=== PATIENT | female | born 1965 | race Caucasian/White ===

== ENCOUNTER → 2018-08-08 15:25 | Outpatient (CLI) | payer OTHER, SELFPAY ==
--- NOTE | 2018-08-08 | DI.RAD.S_ITS ---
PROCEDURE: XR THORACIC SPINE 2V INDICATIONS: CHRONIC UPPER BACK PAIN TECHNIQUE: 4 views of the thoracic spine were acquired. COMPARISON: None. FINDINGS: Bones: Mild kyphosis centered at T7-8 level is seen. Mild degenerative disc disease throughout mid to lower thoracic spine is seen. No fractures or dislocations. No suspicious bony lesions. 12 pairs of ribs are noted, and appear intact where visualized. Soft tissues: No paravertebral stripe thickening. 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 Mild kyphosis centered at T7-8 level. No acute compression fracture or spondylolisthesis. Dictated by: Remington Montalvo M.D. on 08/08/2018 at 16:32 Approved by: Remington Montalvo M.D. on 08/08/2018 at 16:38
== END ==
PROVIDERS: PCP Family Medicine; Visit Provider Family Medicine
DX: M54.9 Dorsalgia, unspecified (principal); G89.29 Other chronic pain; M51.34 Other intervertebral disc degeneration, thoracic region; M40.204 Unspecified kyphosis, thoracic region
CPT/HCPCS: 72070

== ENCOUNTER 2018-11-01 08:57 | Day surgery (SDC) | payer OTHER, SELFPAY ==
[2018-11-01 09:48] VITALS: BP 116/80; PULSE 68; RESP 16; TEMP 36.4; O2SAT 97; BMI 26.0
--- NOTE | 2018-11-01 10:33 | PM.HP.1 ---
History of Present Illness Date Patient Seen: 11/01/18 Time Patient Seen: 10:33 Chief complaint: [id number] SCREENING COLONOSCOPY Narrative: Pleasant 53-year-old lady here for her 1st screening colonoscopy. She denies any problems or symptoms related to the function of her GI tract. She reports she needs colonoscopy as part of a health maintenance program. She denies any personal or family history of cancer or inflammatory bowel disease of any kind Patient History Family History Father Age: 82 Prostate cancer Heart disease Knee joint replacement status Grandmother Heavy smoker Sister Age: 57 MS (multiple sclerosis) Social History household members: none Family & Social History Family History Father Age: 82 Prostate cancer Heart disease Knee joint replacement status Grandmother Heavy smoker Sister Age: 57 MS (multiple sclerosis) Social History: household members none Meds Home Medications Medication Instructions Recorded Confirmed Type No Known Home Medications 11/01/18 11/01/18 History Allergies Allergy/AdvReac Type Severity Reaction Status Date / Time No Known Allergies Allergy Uncoded 11/01/18 09:47 Review of Systems Review of Systems All systems reviewed & are unremarkable except as noted in HPI and below Exam Vital Signs (past 8 hours): - 11/01/18 09:48 Temperature 97.6 F Pulse Rate 68 Respiratory Rate 16 Blood Pressure 116/80 Pulse Oximetry 97 Oxygen Delivery Method Room Air Narrative Exam Narrative: Pleasant and healthy-appearing 53-year-old lady in no distress HEENT: Normocephalic and atraumatic, pupils equal round reactive to light accommodation with anicteric sclera Lungs: Clear to auscultation bilaterally Heart: Regular rate and rhythm without murmur rub or gallop Abdomen: Soft, active bowel sounds Extremities: Warm and well perfused and without edema. Assessment & Plan Assessment & Plan narrative: Very pleasant 53-year-old lady here for her 1st colonoscopy. We discussed the risks and benefits of procedure the patient expressed a desire to complete it today
[2018-11-01] MEDS: MIDAZOLAM 5 MG/5 ML VIAL IV (10:47)
[2018-11-01] MEDS: fentaNYL 250 MCG/5 ML INJ IV (10:48)
--- NOTE | 2018-11-01 10:57 | PM.OP.1 ---
Operative Date/Time/Diagnoses Date of procedure: 11/01/18 Time of procedure: 10:57 Pre-op diagnosis: Screening Post-op diagnosis: same Procedure & Clinicians Procedure: Colonoscopy to the cecum Same procedure as scheduled: Yes Indications: No prior colonoscopy Surgeon: Marylu Gannon Click Yes if Unassisted: Yes Anesthesia Type: Sedation (Versed 8 mg; fentanyl 250 mcg) Operative Notes Findings: 1. Excellent prep 2. No polyps or mass lesions 3. No AV malformations 4. Very mildly tortuous sigmoid region with a few scattered diverticula 5. Grade 1-2 internal hemorrhoids without evidence of hemorrhage 6. Essentially normal colonoscopy for age Closure Type: not applicable Specimen(s): none sent Procedure in detail: After obtaining informed consent, the patient was brought to the GI suite and placed in the left lateral decubitus position on the examination table. After placement of appropriate monitors, the patient was given incremental doses of Versed and Fentanyl until an appropriate level of sedation was achieved. A time out was held per SCOAP protocol. A digital rectal examination was performed and did not reveal any masses or obstructing lesions. The colonoscope was gently passed into the patient's anus and the entire colon navigated to the level of the cecum with minimal difficulty. Once in the cecum, the scope was withdrawn being sure to go before and beyond all mucosal folds and prominences and get an excellent examination. The findings are noted above. At the level of the rectal vault, the scope was retroflexed and the internal anal canal was examined. The scope was straightened and air aspirated from the colon. The instrument was removed from the patient's body and the procedure was concluded. The patient was allowed to awaken from sedation without difficulty and taken to the post-anesthesia care unit in good condition. Total sedation time was 19 min Total withdrawal time 8 min Complications: none Condition: stable Disposition: PACU Plan for aftercare: 1. Discharge to home 2. Plan for next colonoscopy in 10 years or as clinically indicated
[2018-11-01 11:01] VITALS: BP 92/57; PULSE 62; RESP 16; TEMP 36.8; O2SAT 100
[2018-11-01 11:06] VITALS: BP 90/52; PULSE 60; RESP 11; O2SAT 99
[2018-11-01 11:11] VITALS: BP 91/53; PULSE 59; RESP 15; O2SAT 100
[2018-11-01 11:16] VITALS: BP 103/52; PULSE 69; RESP 13; TEMP 36.4; O2SAT 94
[2018-11-01 11:21] VITALS: BP 101/69; PULSE 67; RESP 15; TEMP 37.1; O2SAT 97
== END 2018-11-01 11:42 | disposition home or self-care (01) ==
PROVIDERS: PCP Family Medicine; Visit Provider Surgery
PROC: 0DJD8ZZ Inspection of Lower Intestinal Tract, Via Natural or Artificial Opening Endoscopic (ICD-10-PCS; CPT 45378; principal; 2018-11-01 09:45)
DX: Z12.11 Encounter for screening for malignant neoplasm of colon (principal); K57.30 Diverticulosis of large intestine without perforation or abscess without bleeding; K64.1 Second degree hemorrhoids
CPT/HCPCS: 45378; 99152; J2250; J3010

== ENCOUNTER → 2023-01-17 15:54 | Outpatient (CLI) | payer OTHER, SELFPAY | PROVIDERS: PCP Physician Assistant; Visit Provider Physician Assistant | DX: N76.0 Acute vaginitis (principal) | CPT/HCPCS: 87798 ==

== ENCOUNTER → 2023-12-28 13:08 | Outpatient (CLI) | payer OTHER, SELFPAY ==
--- NOTE | 2023-12-28 13:09 | DI.MG.S_ITS ---
BILATERAL DIGITAL SCREENING MAMMOGRAM 3D/2D WITH CAD: 12/28/2023 CLINICAL: Routine screening. Family history of breast cancer. Comparison is made to exams dated: 12/22/2022 mammogram, 11/25/2021 mammogram, 10/16/2020 mammogram, and 08/08/2018 mammogram - Outside facility. There are scattered areas of fibroglandular density in both breasts (category b / 25%-50% glandular tissue). Current study was also evaluated with a Computer Aided Detection (CAD) system. There are benign post operative findings in both breasts from prior reduction mammoplasty. No significant masses, calcifications, or other findings are seen in either breast. There has been no significant interval change. IMPRESSION: BENIGN There is no mammographic evidence of malignancy. A 1 year screening mammogram is recommended. Based on the Tyrer Cuzick model (a risk assessment model) the patient's lifetime risk is 16.6% and her 10 year risk is 5.5%. According to the ACR, ACS, and NCCN guidelines, an annual breast MRI exam along with mammogram is recommended if the patient's lifetime risk is 20% or greater. This exam was interpreted at Station ID: [id number]. NOTE: For mammograms, a report in lay terms will be sent to the patient. Approximately 15% of breast malignancies will not be visualized mammographically. In the management of a palpable breast mass, a negative mammogram must not discourage biopsy of a clinically suspicious lesion. Electronically Signed By: Cassandra Ramos M.D., Ph.D. eb/:01/03/2024 08:37:07 letter sent: Normal Exam ACR BI-RADS Category 2: Benign Finding(s) 3342F
== END ==
PROVIDERS: PCP Physician Assistant; Referring Provider Physician Assistant; Visit Provider Physician Assistant
DX: Z12.31 Encounter for screening mammogram for malignant neoplasm of breast (principal); Z80.3 Family history of malignant neoplasm of breast; R92.323 Mammographic fibroglandular density, bilateral breasts
CPT/HCPCS: 77063; 77067

== ENCOUNTER → 2025-01-09 11:05 | Outpatient (CLI) | payer BC, SELFPAY ==
[2025-01-09 19:26] LABS: Cholesterol 279 mg/dL (140-199); HDL Cholesterol 100 mg/dL (40-60); LDL Cholesterol Calculated 167 mg/dL (<100); Triglycerides 61 mg/dL (35-150)
== END ==
PROVIDERS: PCP Physician Assistant; Visit Provider Physician Assistant
DX: Z13.6 Encounter for screening for cardiovascular disorders (principal)
CPT/HCPCS: 80061

== ENCOUNTER → 2025-01-27 12:33 | Outpatient (CLI) | payer BC, SELFPAY ==
--- NOTE | 2025-01-27 12:35 | DI.MG.S_ITS ---
MM screening mammo BI: 01/27/2025. BI-RADS: 2 CLINICAL: 59-year old female for bilateral screening mammogram. Tyrer-Cuzick lifetime risk of 12.4%. Current reported family history of breast cancer: mother. The patient is status-post reduction mammoplasty. PRIOR EXAMS 12/28/2023, 12/22/2022, 11/25/2021. MAMMOGRAPHY TECHNIQUE: 2D and 3D (tomosynthesis) digital mammographic views obtained, with additional images as needed for full coverage. Current study was also evaluated with a Computer Aided Detection (CAD) system. DENSITY B. There are scattered areas of fibroglandular density. MAMMOGRAPHY FINDINGS Bilateral: Benign-appearing post-surgical changes noted. There are no suspicious masses, calcifications, or other findings in the breast. No significant change from comparison. IMPRESSION: * No evidence of malignancy with benign findings. RECOMMENDATIONS Bilateral * Annual screening mammography. OVERALL ASSESSMENT CATEGORY BI-RADS-2: Benign. The [employer] recommends annual screening mammography beginning at age 40 for women with average risk of breast cancer. ELECTRONICALLY SIGNED: Fritz Abraham M.D. on 01/27/2025 at 03:49:21 PM PT Interpreting Station ID: [id number]
== END ==
PROVIDERS: PCP Physician Assistant; Referring Provider Physician Assistant; Visit Provider Physician Assistant
DX: Z12.31 Encounter for screening mammogram for malignant neoplasm of breast (principal); Z80.3 Family history of malignant neoplasm of breast
CPT/HCPCS: 77063; 77067

== ENCOUNTER → 2025-02-13 13:54 | Outpatient (CLI) | payer BC, SELFPAY ==
[2025-02-13 20:16] LABS: Thyroid Stimulating Hormone 2.63 uIU/mL (0.47-4.68)
[2025-02-13 20:23] LABS: Hemoglobin A1C% w Est Avg Glu 5.1 % (4.0-6.0)
[2025-02-13 20:35] LABS: Vitamin B12 379 pg/mL (239-931)
== END ==
PROVIDERS: PCP Physician Assistant
DX: R20.0 Anesthesia of skin (principal); M54.50 Low back pain, unspecified
CPT/HCPCS: 82607; 83036; 83921; 84425; 84443; 86140

== ENCOUNTER → 2025-03-12 14:21 | Outpatient (CLI) | payer BC, SELFPAY ==
[2025-03-12 19:49] LABS: Alanine Aminotransferase 29 IU/L (<35); Albumin 4.4 g/dL (3.5-5.0); Albumin Globulin Ratio 1.9 (1.0-2.8); Alkaline Phosphatase 59 U/L (38-126); Blood Urea Nitrogen 12 mg/dL (7-17); Calcium 9.5 mg/dL (8.4-10.2); Carbon Dioxide 27 mmol/L (22-32); Chloride 103 mmol/L (98-107); Estimated Glomerular Filt Rate > 60 mL/min (>60); Gamma Glutamyl Transpeptidase 14 U/L (12-43); Globulin 2.3 g/dL (1.7-4.1); Glucose 83 mg/dL (70-99); HEMOLYSIS 16 (0-50); Potassium 4.1 mmol/L (3.4-5.1); Sodium 137 mmol/L (137-145); Total Protein 6.7 g/dL (6.3-8.2)
== END ==
PROVIDERS: PCP Physician Assistant
DX: R20.2 Paresthesia of skin (principal); M54.50 Low back pain, unspecified; F10.90 Alcohol use, unspecified, uncomplicated
CPT/HCPCS: 80053; 82977; 84155; 84165

== ENCOUNTER → 2025-08-12 10:08 | Outpatient (CLI) | payer BC, SELFPAY ==
[2025-08-13 21:07] LABS: Deamidated Gliadin Ab IgA 3 units (0-19); Deamidated Gliadin Ab IgG 2 units (0-19); Immunoglobulin A,Qn 97 mg/dL (87-352)
== END ==
PROVIDERS: PCP Physician Assistant; Referring Provider Psychiatry & Neurology Neurology; Visit Provider Psychiatry & Neurology Neurology
DX: R20.0 Anesthesia of skin (principal)
CPT/HCPCS: 82784; 83516; 84155; 84207; 84446; 86334